=== PATIENT | male | born 1980 | race Caucasian/White ===

== ENCOUNTER 2018-09-21 04:17 | Emergency (ER) | payer OTHER ==
[~2018-09-21] VITALS: Wt 120.4 kg
[2018-09-21] MEDS ORDERED: PENICILLIN G BENZ 2.4 MIL UNIT SYG IM ONE (05:00)
--- NOTE | 2018-09-21 05:01 | ERD ---
ER Documentation Chief Complaint Chief Complaint SEXUAL PARTNER TEST + FOR STD; PT HAS GENITAL SYMPTOMS HPI 38-year-old male presents after possible STD exposure. He was contacted by a sexual partner that she was positive for syphilis. He had sex with this person one time 3 months ago. 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 Patient at that time had some complaints of discoloration on his penis and some irritation in his tongue. Currently he has irritation of his tongue but denies any penile discharge, genital ulcers, history of rashes, additional symptoms. Denies any testicular pain or swelling or dysuria. Denies any fevers, chest pain, shortness of breath, mental status changes, additional symptoms. ROS All systems reviewed and are negative except as per history of present illness. Allergies Allergies: Coded Allergies: No Known Allergy (Unverified , 09/21/18) Physical Exam Vitals Vital Signs Date Temp Pulse Resp B/P (MAP) Pulse Ox O2 O2 Flow FiO2 Time Delivery Rate 09/21/18 97.4 99 18 188/112 99 04:21 (137) Physical Exam Const: No acute distress Head: Atraumatic Eyes: Normal Conjunctiva ENT: Normal External Ears, Nose and Mouth. No appreciable lesions. Neck: Full range of motion. No meningismus. Resp: Clear to auscultation bilaterally Cardio: Regular rate and rhythm, no murmurs Abd: Soft, non tender, non distended. Normal bowel sounds. No penile disc harge testicles nontender normal size and bilaterally descended. Skin: No petechiae or rashes Back: No midline or flank tenderness Ext: No cyanosis, or edema Neur: Awake and alert Psych: Normal Mood and Affect Results 24 hrs Current Medications Medications Dose Sig/Alexandro Start Time Status Last (Trade) Ordered Route PRN Stop Time Admin Dose Reason Admin Penicillin 2,400,000 ONCE ONCE 09/21/18 G units IM 05:00 Benzathine 09/21/18 05:01 (Bicillin La) Procedures/MDM Patient presents with a history of possible sepsis contact 3 months ago. He will be given 1 dose of Bicillin 2,400,000 units IM. Patient initially will be tested for HIV and gonorrhea chlamydia. Patient is advised to recheck in 1 week for STD results. History suggests 1 dose of penicillin should be sufficient of patient was previously treated and syphilis contact was 3 months ago. Patient has no current signs or symptoms of tertiary syphilis. The patient was stable with no new complaints during the ER course. Clinically, there is no current evidence to suggest meningitis, sepsis, acute abdomen, pneumonia, stroke, acute coronary syndrome, pulmonary embolism, aortic dissection or any other emergent condition appearing to require further evaluation or hospitalization. Patient counseled regarding my diagnostic impression and care plan. Prior to discharge all questions answered. Pt agrees with treatment plan and understands strict return precautions. Pt is instructed to follow up with primary care provider within 24-48 hours. Precautionary instructions provided including instructions to return to the ER if not improving or for any worsening or changing symptoms or concerns. Disclaimer: Inadvertent spelling and grammatical errors are likely due to EHR/dictation software use and do not reflect on the overall quality of patient care. Also, please note that the electronic time recorded on this note does not necessarily reflect the actual time of the patient encounter. Departure Diagnosis: Primary Impression: Exposure to STD Condition: Stable Patient Instructions: Syphilis, Std, Suspected (Culture Only) Additional Instructions: You have been treated for syphilis of less than 1 years duration. Recheck in 1 week for additional STD results. ERROL LIU MD September 21, 2018 05:00
[2018-09-21 05:37] VITALS: BP 161/94; PULSE 98; RESP 18
== END 2018-09-21 05:41 | disposition home or self-care (01) ==
LOC: FTE 04:17
DX: Z20.2 Contact with and (suspected) exposure to infections with a predominantly sexual mode of transmission (principal)
CPT/HCPCS: 86592; 86703; 87285; 87591; 96372; J0561; Z7502

== ENCOUNTER 2018-10-14 07:53 | Emergency (ER) | payer OTHER ==
[~2018-10-14] VITALS: Ht 182.9 cm; Wt 119.5 kg
[2018-10-14 08:00] VITALS: Ht 182.9 cm; Wt 119.5 kg
[2018-10-14] MEDS ORDERED: ALBUTEROL 0.083% (NEB) 2.5 MG/3 ML AMP HHN STA (08:21)
[2018-10-14] MEDS ORDERED: IPRATROPIUM (NEB) 0.5 MG/2.5 ML AMP HHN ONE (08:30)
[2018-10-14] MEDS ORDERED: DEXAMETHASONE 10 MG/ML 1 ML INJ IM ONE (08:30)
[2018-10-14] MEDS ORDERED: PRED20TA PO (08:52)
[2018-10-14] MEDS ORDERED: ALBU8.5H8 INH (08:52)
[2018-10-14] MEDS ORDERED: PROM6.2515 PO (08:52)
--- NOTE | 2018-10-14 09:17 | ERD ---
ER Documentation Chief Complaint Chief Complaint COUGH X 1 1/2 WEEKS. HPI 38-year-old male presenting with a cough x1-1/2 weeks. Patient has a productive cough is been taking TheraFlu. No fevers. Has a runny nose. Occasional shortness of breath. Has not been taking any cough medicine. Denies any leg swelling or chest pain. Denies medical problems. NKDA. Surgical history denies. Social history smokes however has not for the last week. ROS All systems reviewed and are negative except as per history of present illness. Medications Home Meds Active Scripts Promethazine Hcl* (Promethazine Hcl* Syrup) 6.25 Mg/5 Ml Syrup, 6.25 MG PO Q6H PRN for COUGH, #100 ML Prov:MIKA RODRIGUEZ PA-C 10/14/18 Albuterol Sulfate* (Proair HFA*) 8.5 Gm Hfa.aer.ad, 2 PUFF INH Q4, #1 INHALER Prov:MIKA RODRIGUEZ PA-C 10/14/18 Prednisone* (Prednisone*) 20 Mg Tab, 40 MG PO DAILY for 4 Days, TAB Prov:MIKA RODRIGUEZ PA-C 10/14/18 Allergies Allergies: Coded Allergies: No Known Allergy (Unverified , 09/21/18) PMhx/Soc Medical and Surgical Hx: pt denies Medical Hx, pt denies Surgical Hx Hx Alcohol Use: Yes (every day) Hx Substance Use: Yes (marijuan) Hx Tobacco Use: Yes Smoking Status: Current some day smoker FmHx Family History: No diabetes, No coronary disease, No other Physical Exam Vitals Vital Signs Date Temp Pulse Resp B/P (MAP) Pulse Ox O2 O2 Flow FiO2 Time Delivery Rate 10/14/18 78 18 97 21 08:43 10/14/18 96.8 90 17 120/76 97 08:00 (91) Physical Exam GENERAL: The patient is well-appearing, well-nourished, in no acute distress HEENT: Atraumatic. Conjunctivae are pink. Pupils equal, round, and reactive to light. There is no scleral icterus. Tympanic membranes clear bilaterally. Oropharynx clear. NECK: C-spine is soft and supple. There is no meningismus. There is no cervical lymphadenopathy. CHEST: Clear to auscultation bilaterally. There are no rales, wheezes or rhonchi. HEART: Regular rate and rhythm. No murmurs, clicks, rubs or gallops. Results 24 hrs Current Medications Medications Dose Sig/Alexandro Start Time Status Last (Trade) Ordered Route PRN Stop Time Admin Dose Reason Admin Albuterol 5 mg ONCE STAT 10/14/18 DC 10/14/18 (Proventil HHN 08:21 10/14/18 08:42 0.083% (Neb)) 08:23 Ipratropium 0.5 mg ONCE ONCE 10/14/18 DC 10/14/18 [facility] HHN 08:30 10/14/18 08:42 (Atrovent 08:31 0.02% (Neb)) 10 mg ONCE ONCE 10/14/18 DC 10/14/18 Dexamethasone IM 08:30 10/14/18 08:27 (Decadron) 08:31 Procedures/MDM DIAGNOSTIC IMAGING REPORT Patient: COLT FERRER : 1980 Age: 38 Sex: M MR #: [id number] DOS: 10/14/18 0821 Ordering MD: KEIKO RODRIGUEZ PA-C Location: [facility] Room/Bed: PROCEDURE: XR Chest. CLINICAL INDICATION: Cough TECHNIQUE: PA chest was obtained. COMPARISON: None. FINDINGS: Cardiomediastinal silhouette is normal. Pulmonary vasculature is normal. Lungs and costophrenic angles are clear. Bones soft tissues are unremarkable. IMPRESSION: No evidence of acute cardiopulmonary disease. ER Course: Albuterol and Atrovent breathing treatment given in ED. Decadron given in ED. MDM: 38-year-old male presenting with cough. Patient likely has viral syndrome with bronchitis. Patient is discharged with supportive medications. I have low suspicion for pneumonia. I have low suspicion for respiratory distress or hypoxia. Patient is discharged with supportive medications I do not feel antibiotics are indicated. Patient checks x-ray is within normal limits. Patient is told if symptoms change or worsen to return immediately to the ER. All questions answered at discharge Departure Diagnosis: Primary Impression: Cough Condition: Stable Patient Instructions: Cough, Chronic, Uncertain Cause, (Adult) Referrals: COMM[facility] YOU HAVE RECEIVED A MEDICAL SCREENING EXAM AND THE RESULTS INDICATE THAT YOU DO NOT HAVE A CONDITION THAT REQUIRES URGENT TREATMENT IN THE EMERGENCY DEPARTMENT. FURTHER EVALUATION AND TREATMENT OF YOUR CONDITION CAN WAIT UNTIL YOU ARE SEEN IN YOUR DOCTORS OFFICE WITHIN THE NEXT 1-2 DAYS. IT IS YOUR RESPONSIBILITY TO MAKE AN APPOINTMENT FOR FOLOW-UP CARE. IF YOU HAVE A PRIMARY DOCTOR --you should call your primary doctor and schedule an appointment IF YOU DO NOT HAVE A PRIMARY DOCTOR YOU CAN CALL OUR PHYSICIAN REFERRAL HOTLINE AT IF YOU CAN NOT AFFORD TO SEE A PHYSICIAN YOU CAN CHOSE FROM THE FOLLOWING [facility] [address] [facility] [address] [facility] [facility] [address] [facility] [address] [facility] [address] [facility] [address] Additional Instructions: FOLLOW UP WITH YOUR PRIMARY CARE PHYSICIAN TOMORROW.Return to this facility if you are not improving as expected. MIKA RODRIGUEZ PA-C Oct 14, 2018 09:17
[2018-10-14 09:26] VITALS: BP 140/91; PULSE 100; RESP 18
== END 2018-10-14 09:26 | disposition home or self-care (01) ==
LOC: FTE 07:53
DX: R05 Cough (principal); F17.210 Nicotine dependence, cigarettes, uncomplicated
CPT/HCPCS: 71045; 94640; 94664; 96372; J1100; Z7502; Z7610